=== PATIENT | male | born 1970 | race Caucasian/White ===

== ENCOUNTER 2018-03-20 15:33 | Emergency (ER) | payer OTHER ==
--- NOTE | 2018-03-20 16:43 | ED ---
Lower Extremity - HPI Summary HPI Summary: 47 yr old male with the complaint of left knee pain. Onset of pain about a week ago. He states that he bent down, squatted and when stood up felt a pop in his left knee. Pain is moderate. Pain is located over the medial knee mostly. Denies direct fall or trauma. No fever or chills. No other complaints. He had right knee meniscus surgery in the past. he states this feels like a similar problem this time. - History of Current Complaint Chief Complaint: UCLowerExtremity Stated Complaint: L KNEE PAIN Time Seen by Provider: 03/20/18 16:21 Pain Intensity: 6 - Allergies/Home Medications Allergies/Adverse Reactions: Allergies Allergy/AdvReac Type Severity Reaction Status Date / Time No Known Allergies Allergy Verified 12/24/14 08:11 PMH/Surg Hx/FS Hx/Imm Hx Endocrine/Hematology History: Denies: Hx Diabetes Cardiovascular History: Denies: Hx Hypertension, Hx Pacemaker/ICD Musculoskeletal History: Denies: Hx Rheumatoid Arthritis, Hx Osteoporosis Sensory History: Reports: Hx Contacts or Glasses - GLASSES Denies: Hx Hearing Aid Opthamlomology History: Reports: Hx Contacts or Glasses - GLASSES Psychiatric History: Denies: Hx Panic Disorder - Cancer History Cancer Type, 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 skin ca removal Hx Anesthesia Reactions: No Infectious Disease History: No Infectious Disease History: Denies: Traveled Outside the [place] in Last 30 Days - Family History Known Family History: Positive: None - Social History Alcohol Use: None Substance Use Type: Reports: None Smoking Status (MU): Never Smoked Tobacco Review of Systems Constitutional: Negative Positive: Other - knee pain All Other Systems Reviewed And Are Negative: Yes Physical Exam Triage Information Reviewed: Yes Vital Signs On Initial Exam: Initial Vitals Temp Pulse Resp BP Pulse Ox 98.3 F 95 16 160/94 98 03/20/18 16:06 03/20/18 16:06 03/20/18 16:06 03/20/18 16:06 03/20/18 16:06 Vital Signs Reviewed: Yes Appearance: Positive: Well-Appearing, No Pain Distress Skin: Positive: Warm, Skin Color Reflects Adequate Perfusion Head/Face: Positive: Normal Head/Face Inspection Eyes: Positive: EOMI ENT: Positive: Normal ENT inspection Neck: Positive: Supple Respiratory/Lung Sounds: Positive: Clear to Auscultation, Breath Sounds Present Cardiovascular: Positive: RRR. Negative: Murmur Abdomen Description: Positive: Nontender Musculoskeletal: Positive: Strength/ROM Intact, Other - no effusion left knee. No increased warmth, no focal tenderness. Flexion and extension without any clicking sounds. Neurological: Positive: Normal, Sensory/Motor Intact, Alert, Oriented to Person Place, Time Psychiatric: Positive: Normal Diagnostics - Vital Signs Vital Signs Temp Pulse Resp BP Pulse Ox 03/20/18 16:06 98.3 F 95 16 160/94 98 - Laboratory Lab Statement: Any lab studies that have been ordered have been reviewed, and results considered in the medical decision making process. - Radiology knee left Xray Interpretation: Positive (See Comments) - suprpatellar effusion Radiology Interpretation Completed By: Radiologist Lower Extremity Course/Dx - Course Course Of Treatment: 47 yr old male with left knee pain, and prior medial meniscus surgery on the other knee. He has Dr Wang as his orthopedic surgeon. - Diagnoses Provider Diagnoses: Left knee sprain, Hypertension Discharge - Sign-Out/Discharge Documenting (check all that apply): Discharge/Admit/Transfer - Discharge Plan Condition: Good Disposition: HOME Patient Education Materials: Knee Sprain (ED), Hypertension (ED) Referrals: Mignon Wang MD [Medical Doctor] - 1 Day Jose De Jesus Matamoros DO [Primary Care Provider] - 2 Days - Billing Disposition and Condition Condition: GOOD Disposition: Home
[2018-03-20 16:50] VITALS: BP 160/94
--- NOTE | 2018-03-20 17:27 | RAD ---
INDICATION: 1 week of left knee pain COMPARISON: None TECHNIQUE: 4 view radiograph of the left knee. FINDINGS: The visualized bones are well-corticated and properly aligned. The joint spaces are adequately maintained. There is an osteophyte formation at the superior pole of the patella. There is a small suprapatellar joint effusion. There is no acute fracture, dislocation or other focal bony abnormality. IMPRESSION: Small suprapatellar joint effusion and mild degenerative changes. If the patient's symptoms persist, follow-up imaging is recommended.
== END 2018-03-20 17:45 | disposition home or self-care (01) ==
LOC: UCCORT 15:33
DX: S83.92XA Sprain of unspecified site of left knee, initial encounter (principal); X50.0XXA Overexertion from strenuous movement or load, initial encounter; Y93.89 Activity, other specified; Y92.9 Unspecified place or not applicable; I10 Essential (primary) hypertension
CPT/HCPCS: 99211; G0463

== ENCOUNTER → 2018-06-12 10:14 | Day surgery (SDC) | payer OTHER ==
[~2018-06-12 10:14] MED LIST: Buffered Lidocaine 0.9% SYRIN* 5 ML/SYR SYRINGE INTRADERM ONE; Bupivacaine 0.25% SDV* 30 ML ONE; Dexamethasone IV* 4 MG/ML 1 ML (4 MG) IV SLOW PU ONE; Dexamethasone IV* 4 MG/ML 1 ML (4 MG) ONE; DiMENhydriNATE IV* 50 MG/ML VIAL IV PUSH PRN; Famotidine IV* 10 MG/ML 2 ML (20 mg) IV ONE; Famotidine IV* 10 MG/ML 2 ML (20 mg) ONE; HYDROcodone/ACETAMIN 5-325 MG* 1 TAB PO PRN; Ketorolac INJ* 30 MG/ML 1 ML VIAL ONE; Lidocaine 2% PF * 5 ML VIAL ONE; Morphine VIAL* 10 MG/ML 1 ML VIAL ONE; Naloxone* 0.4 MG/ML 1 ML VIAL IV PRN; Ondansetron INJ* 2 MG/ML VIAL ONE; Propofol* 10 MG/ML 20 ML BTL IV PUSH ONE; ceFAZolin 2 GM in NS PREMIX(*) 2 GM/100 ML BAG IVPB ONE; fentaNYL* 50 MCG/ML 2 ML VIAL (100 MCG VIAL) IV PRN; fentaNYL* 50 MCG/ML 2 ML VIAL (100 MCG VIAL) ONE; oxyCODONE/Acetamin 5/325 MG* TAB PO PRN
--- NOTE | 2018-06-12 13:47 | OP ---
Operative Report - Blank - Operative Report Date of Operation: 06/12/18 Note: PATIENT: Tim Morfin DATE OF : 1970 DATE OF SURGERY: 06/12/2018 SURGEON: Joshua Naranjo MD ADVERTISING AGENT: SAWYER Dobson, whos assistance was necessary for positioning, retraction, help with instrumentation, and closure. ANESTHESIOLOGIST: Dr. Santoro PREOPERATIVE DIAGNOSIS: Left knee medial meniscus tear POSTOPERATIVE DIAGNOSIS: Left knee medial meniscus tear OPERATION: Left knee arthroscopy with partial medial meniscectomy ANESTHESIA: LMA IMPLANTS: none TOURNIQUET TIME: Less than one hour, with a well-padded thigh tourniquet at 250 mmHg. SPECIMENS: None ESTIMATED BLOOD LOSS: minimal COMPLICATIONS: none STATUS: Stable from the operating room to the recovery room and then home. INDICATIONS FOR PROCEDURE: Tim has had persistent left knee pain and a medial meniscus tear, refractory to extensive non-op treatment. Both operative and non operative treatment alternatives were reviewed. Further, the nature and risks of surgery were reviewed in careful detail, in the office as well as the pre-operative holding area. Our discussions regarding the risks of surgery included, but were not limited to, infection, wound problems, nerve injury, neuroma, RSD, persistent symptoms, blood clot, failure of the surgery, need for further surgery, development of arthritis, and even the remote chance of catastrophic complication, including loss of limb. DESCRIPTION OF PROCEDURE: The patient was seen in the preoperative holding unit and informed written consent was obtained. The appropriate extremity was marked. The patient was then brought to the operating room and carefully positioned on the operating room table. Anesthesia was induced. All bony prominences were padded with great care. A well-padded thigh tourniquet was placed. A chlorhexidine based pre- scrub was performed followed by a chloraprep prep and drape in standard sterile fashion. A surgical safety pause was then conducted in which we confirmed the appropriate patient, extremity, planned procedure, availability of equipment, indication and administration of prophylactic antibiotics, and DVT prophylaxis in the form of a compression boot on the non-surgical extremity. I began with an Esmarch exsanguination of the limb and inflated the tourniquet. I insufflated the joint by injecting sterile saline. I began by making a standard anterolateral knee arthroscopy portal. The arthroscope was inserted into the knee joint and a diagnostic arthroscopy was performed. The cartilage appeared to be in good shape throughout. Then under direct visualization an anteromedial arthroscopy portal was made. I introduced a probe into the joint. This was used to probe the posterior horn medial meniscus tear, which had flipped into the joint. A biter and oscillating shaver were used to debride the meniscal tear back to a stable rim. I then performed an extensive irrigation of the joint while running the shaver in each of the knee compartments to remove any loose debris. Once thoroughly irrigated and debrided, I suctioned the fluid out of the joint. The arthroscopy portals were then closed utilizing 3-0 monocryl. A sterile dressing was then applied. The patient was then awakened from anesthesia and transferred to the recovery room in stable condition. There were no complications. All needle and sponge counts were correct at the end of the case. ATTESTATION: I attest I was present and scrubbed and performed the critical portions of the procedure myself. POSTOPERATIVE PLAN: The plan is for weight-bearing as tolerated with crutches. Follow-up will be in 2 weeks for likely suture removal.
[2018-06-12 14:12] VITALS: BP 150/100
== END | disposition home or self-care (01) ==
LOC: OR 10:14
PROVIDERS: ATTEND Orthopaedic Surgery
DX: S83.222A Peripheral tear of medial meniscus, current injury, left knee, initial encounter (principal); X50.0XXA Overexertion from strenuous movement or load, initial encounter; Y92.9 Unspecified place or not applicable
CPT/HCPCS: J0690; J1100; J1885; J2270; J2405; J2704; J3010

== ENCOUNTER 2019-11-04 12:24 | Emergency (ER) | payer BC ==
[2019-11-04 12:56] VITALS: BP 156/109
--- NOTE | 2019-11-04 12:59 | UC ---
Respiratory Complaint HPI - HPI Summary HPI Summary: Patient is a 49yo male presenting with "persistent cough and shortness of breath since beginning of 2018." Patient states he had a "nasty URI" and was left with residual cough. Cough nonproductive. States he "just can't breathe." "Feels tight with deep breaths." Denies wheezing. Denies fevers and chills. Denies n/v. Normal appetite. Denies recent weight loss/gain. States he "runs religiously" and "has not been able to run even for 4 minutes without losing his breath and having a coughing fit." Notes intermittent sob at rest as well. States he "just doesnt feel well." Denies h/o asthma and exercise induced asthma. Never smoker. Patient is a nurse, states he "would just have peace of mind if he could get a chest xray." - History of Current Complaint Chief Complaint: UCRespiratory Stated Complaint: RESP. ISSUE COUGH Hx Obtained From: Patient Pain Intensity: 0 - Allergies/Home Medications Allergies/Adverse Reactions: Allergies Allergy/AdvReac Type Severity Reaction Status Date / Time No Known Allergies Allergy Verified 11/04/19 12:53 Home Medications: Home Medications Ibuprofen TAB* [Advil TAB*] 800 mg PO Q8H PRN 11/04/19 [History Confirmed ] PMH/Surg Hx/FS Hx/Imm Hx Previously Healthy: Yes - Surgical History Surgical History: Yes Surgery Procedure, Year, and Place: R knee scoped 20yrs ago [place]. skin ca removal. RIGHT KNEE 5 YEARS [facility] - Family History Known Family History: Positive: None - Social History Alcohol Use: None Substance Use Type: None Smoking Status (MU): Never Smoked Tobacco Have You Smoked in the Last Year: No Review of Systems All Other Systems Reviewed And Are Negative: Yes Constitutional: Positive: Negative. Negative: Fever, Chills Respiratory: Positive: Shortness Of Breath, Cough Cardiovascular: Positive: Negative Gastrointestinal: Positive: Negative Musculoskeletal: Positive: Negative Neurological/Mental Status: Positive: Negative Physical Exam - Summary Physical Exam Summary: Vital Signs Reviewed: Yes A+Ox3, no distress Eyes: Conjunctiva Clear ENT: Hearing grossly normal, TM x 2 clear, moist, uvula midline, no exudate, no erythema Neck: Positive: Supple Respiratory: Positive: No respiratory distress, No accessory muscle use + CTA throughout no w/r Cardiovascular: RRR nl s1, s2 no m/r Musculoskeletal Exam: ALICEA x 4 without difficulty Neurological: Positive: Alert Psychological: Positive: age appropriate behavior Skin: Positive: no rash, no ecchymosis Vital Signs: Initial Vital Signs Temp 98.1 F 11/04/19 12:49 Pulse 78 11/04/19 12:49 Resp 18 11/04/19 12:49 BP 156/109 11/04/19 12:49 Pulse Ox 99 11/04/19 12:49 Diagnostics - Radiology CXR Radiology Interpretation Completed By: Radiologist Summary of Radiographic Findings: IMPRESSION: NO ACTIVE CARDIOPULMONARY DISEASE. Respiratory Course/Dx - Course Course Of Treatment: CXR read as normal. Discussed radiograph findings with patient. Educated on acute bronchitis and treated with 5 day course of prednisone and albuterol inhaler. Educated on prednisone and side effects. Instructed to follow up with PCP if symptoms have not improved within 7 days. Patient voiced understanding and agreed with the treatment plan. - Differential Dx/Diagnosis Differential Diagnosis/HQI/PQRI: Asthma, Bronchitis Provider Diagnosis: Bronchospasm with bronchitis, acute Discharge ED - Sign-Out/Discharge Documenting (check all that apply): Patient Departure All imaging exams completed and their final reports reviewed: Yes - Discharge Plan Condition: Stable Disposition: HOME Prescriptions: Albuterol HFA INHALER* [Ventolin HFA Inhaler*] 1 - 2 puff INH Q6H PRN #1 mdi PRN Reason: Sob/Wheezing predniSONE [Prednisone 20 MG TAB] 40 mg PO DAILY 5 Days #10 tablet Patient Education Materials: Acute Bronchitis (ED), Bronchospasm (ED) Referrals: Jose De Jesus Matamoros DO [Primary Care Provider] - If Needed Additional Instructions: Your chest xray was normal today. Take 40mg of prednisone daily for 5 days. Use the inhaler as needed for shortness or breath. Increase your fluid intake. Follow up with your primary care provider if symptoms do not improve within 7 days. - Billing Disposition and Condition Condition: STABLE Disposition: Home
== END 2019-11-04 13:59 | disposition home or self-care (01) ==
LOC: UCCORT 12:24
DX: J20.9 Acute bronchitis, unspecified (principal)
CPT/HCPCS: 71046; 99212; G0463